=== PATIENT | male | born 1955 | race Caucasian/White ===

== ENCOUNTER → 2022-02-05 13:03 | Outpatient (BNVA) | payer MEDICARE, OTHER, SELFPAY | PROVIDERS: PCP Family Medicine; Referring Provider Dermatology; Visit Provider Podiatrist Foot & Ankle Surgery | DX: L60.3 Nail dystrophy (principal) | CPT/HCPCS: 99203 ==

== ENCOUNTER → 2022-02-10 07:34 | Outpatient (BNVA) | payer MEDICARE, OTHER, SELFPAY | PROVIDERS: PCP Family Medicine; Visit Provider Student in an Organized Health Care Education/Training Program | DX: M67.442 Ganglion, left hand (principal) | CPT/HCPCS: 73130; 99204 ==

== ENCOUNTER → 2022-02-24 10:28 | Outpatient (BNVA) | payer MEDICARE, OTHER, SELFPAY | PROVIDERS: PCP Family Medicine; Visit Provider Podiatrist Foot & Ankle Surgery | DX: L60.8 Other nail disorders (principal); B35.1 Tinea unguium | CPT/HCPCS: 99213 ==

== ENCOUNTER 2022-03-12 07:23 | Day surgery (SDC) | payer MEDICARE, OTHER, SELFPAY ==
[2022-03-11 12:17] VITALS: BMI 26.3
[2022-03-12 07:44] VITALS: BP 118/87; PULSE 79; RESP 18; TEMP 36.5; O2SAT 95
[2022-03-12] MEDS: sodium chloride 0.9% 1,000 ML 30 ML IV (07:50)
[2022-03-12] MEDS: ketorolac 30 mg/mL INJ IVP (07:50)
[2022-03-12] MEDS: acetaminophen 1,000 MG/100 ML PIGGYBACK 400 MG IV (07:50)
--- NOTE | 2022-03-12 08:23 | W.PM.OPSUD ---
Surgery/Procedure H&P Update DATE OF PROCEDURE: March 12, 2022 DATE H&P PERFORMED: 02/10/22 CHANGES TO PREVIOUS DOCUMENTATION: None PREOP DIAGNOSIS: Left small finger mucous cyst PRIMARY INDICATION FOR PROCEDURE: Left small finger mucous cyst, painful failed conservative treatment PLANNED PROCEDURE: Operation Date: 03/12/22 09:05 Proposed Procedures p Left Small finger mucous cyst excision [id number](Left) - Jonathan Richard DO
--- NOTE | 2022-03-12 09:47 | ANES.PREANE2 ---
Pre-Anesthetic Assessment Height/Weight: Height 1.88 m Weight 92.986 kg Temp Pulse Resp BP Pulse Ox O2 Del Method 97.7 F 79 18 118/87 95 03/12/22 07:44 03/12/22 07:44 03/12/22 07:44 03/12/22 07:44 03/12/22 07:44 03/12/22 07:44 Preop Diagnosis: Left small finger mucous cyst Operation Date: 03/12/22 09:05 Proposed Procedures p Left Small finger mucous cyst excision [id number](Left) - Jonathan Richard, Familial anesthetic complications: none Was Beta Arslan taken within 24 hours: Yes Was Clonidine taken within 24 hours: N/A Last intake: Intake Last Liquid Date 03/11/22 Last Liquid Time 18:30 Last Solid Date 03/11/22 Last Solid Time 18:00 Social No alcohol and No tobacco Exam alert, oriented x 3, clear to auscultation bilaterally and regular rate & rhythm Airway Submandibular: within normal limits Cervical ROM: within normal limits Mallampati: Class II Dentition: full CV/HEM Hypertension Anesthetic Plan ASA status: 2 Anesthesia: MAC Medications/Allergies Home Medications Medication Instructions Recorded Confirmed Last Taken Type aspirin 325 mg tablet 325 mg PO DAILY #90 tabs 11/12/21 03/11/22 03/08/22 Rx metoprolol tartrate 25 mg tablet 12.5 mg PO BID #90 tabs 11/12/21 03/11/22 03/11/22 Rx Allergies Allergy/AdvReac Type Severity Reaction Status Date / Time No Known Allergies Allergy Verified 03/12/22 07:34 Current Medications Generic Name Dose Route Start Last Admin Trade Name Renéq PRN Reason Stop Dose Admin Sodium Chloride 1,000 mls @ 30 mls/hr 03/12/22 07:30 03/12/22 07:50 Sodium Chloride 0.9% IV 03/13/22 07:29 30 mls/hr .Q24H NELDA Administration PFSH Anesthesia Medical History Atrial fibrillation Digital mucous cyst of finger of left hand Family History Grandfather Heart attack Social History Smoking and tobacco status: former smoker (smokeless tobacco) Alcohol intake: current Alcohol intake frequency: few times a week Alcohol type: beer and wine Data Anesthesia Cardiac Studies: No Data to Display
[2022-03-12] MEDS: ceFAZolin 2,000 MG in sodium chloride 0.9% (plus) 50 ML 100 MG IV (09:48)
[2022-03-12 10:22] VITALS: BP 119/84; PULSE 79; RESP 14; TEMP 36.1; O2SAT 98
[2022-03-12 10:25] VITALS: BP 141/83; PULSE 68; RESP 21; O2SAT 96
[2022-03-12 10:30] VITALS: BP 109/75; PULSE 59; RESP 14; TEMP 36.4; O2SAT 97
--- NOTE | 2022-03-12 10:34 | PM.OP2 ---
Brief Operative Note Date of procedure: 03/12/22 Pre-op diagnosis: Left small finger mucous cyst Post-op diagnosis: same Procedure Done: Left small finger mucous cyst excision Surgeon: Jonathan Richard Estimated blood loss (mL): 1 Complications: None Post-op Plan: Patient taken to PACU in stable condition. Patient recovering well. Patient given appropriate discharge instruction as well as pain medication postoperatively. To follow-up with me in the office in 2 weeks. Range of motion as tolerated the finger. 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
[2022-03-12 10:35] VITALS: BP 137/75; PULSE 68; RESP 16; TEMP 36.4; O2SAT 97
--- NOTE | 2022-03-12 10:37 | PM.PACU ---
PACU note Narrative: Patient seen evaluated in PACU. Patient recovering well. Dressing on in place clean dry and intact. Examination limited secondary to dressing. Brisk capillary refill less than 2 seconds. Patient received local anesthesia sensation decreased to the left small finger. Exam: awake Disposition: discharged
--- NOTE | 2022-03-12 10:37 | PM.OP ---
Operative Report Date of procedure: March 12, 2022 Pre-op diagnosis: Preop Diagnosis Left small finger mucous cyst Post-op diagnosis: Same Procedure done: Left small finger mucous cyst excision Surgeon: Jonathan Richard DO Estimated blood loss: 1 cc 16 minutes IV fluids: See anesthesia record Complications: None Findings: See operative report narrative Condition: stable Disposition: same day Brief History: Patient was seen and worked up in the outpatient setting and findings consistent with a left small finger mucous cyst. Patient's had this over a year and has significant tenderness to palpation when he bumps this. Its enabled some of his activities of daily living. He is poked this and drained the cyst multiple times over the past year. Continue to return and recur. We talked about treatment options. On x-ray he does not have a significant dorsal osteophyte or any significant arthritic changes. We talked about continued conservative treatment versus surgery with left small finger mucous cyst excision. Through shared decision making elected to proceed with surgery. We talked about risk benefits complication alternatives to surgical treatment options. He understands risks and agrees to proceed with surgical intervention. All questions answered. Consent was reviewed and signed with patient. Procedure: Patient was seen and evaluated in the preoperative holding area. Consent was reviewed with patient and signed. The correct extremity was subsequently marked. Seen evaluated by anesthesia department. Once cleared for surgery taken back to the operative suite. Patient was then subsequently placed in the operative table with armboard to the left upper extremity. Patient was appropriately secured to the bed and all bony prominences well-padded. Nonsterile tourniquet applied to the left upper arm. Patient's left upper extremity was then prepped and draped in standard orthopedic fashion. Final timeout performed. Patient received appropriate preoperative antibiotics. Patient underwent local anesthesia for digital block of the left small finger. Next the finger turnicot was then placed to the left small finger for hemostasis. I then identified the residual left small finger mucous cyst over the DIP joint. This was more on the ulnar aspect of the digit. As result I extended an incision extending from the eponychial crease on the ulnar side of the digit to the DIP joint and then made a transverse incision in line with the DIP extensor crease to create a flap to mobilize and excised the entirety of the mucous cyst capsule. Dissection was made carefully through skin and subcutaneous tissue with meticulous soft tissue handling and mobilized the skin flap and elevated right on top of the extensor tendon extensor tendon was protected throughout this case. Mobilizing the flap I then encountered the cyst in cystlike fluid was then excised. Because the patient had previously decompressed this there was not much fluid and the capsule was identified which was very superficial in nature. The cyst was right over top the germinal matrix. I then utilized the scalpel to ellipse out the entirety of the mucous cyst capsule. I bent the DIP joint to identify where the cyst stalk was coming from. There was a small rent at the terminal extensor tendon insertion at the central portion. 1 synovial fluid would come out of this area. At this point time I used bipolar electrocautery to coagulate this area which was near the germinal matrix. Care was made to focalized right over this area and not damage the germinal matrix. This point time I had complete excision of the cyst as well as coagulation of the stalk. No significant dorsal osteophytes were identified and no need for further dissection into the DIP joint. This point time I then thoroughly irrigated the wound bed turnicot was removed. Hemostasis satisfactory with bipolar electrocautery. I then subsequently closed the incision with interrupted nylon suture. Finger was then dressed with Xeroform 4 x 4's Curlex and an Chandan wrap. Patient tolerated procedure without complication he was awakened from anesthesia and taken to PACU in stable condition.: Disposition: Patient tolerated procedure without complications. Dressing clean dry and intact. Receive appropriate discharge structure as well as pain medication postoperatively. Patient will follow-up with me in the office in 2 weeks. Patient understands agrees with current plan. All questions answered.
[2022-03-12 10:50] VITALS: BP 129/81; PULSE 61; RESP 16; O2SAT 98
--- NOTE | 2022-03-12 12:02 | ANE.PACU2 ---
Inpatient post-anesthesia follow up: Airway intact: Yes Vital signs: Temperature 97.6 F Pulse Rate 61 Respiratory Rate 16 Blood Pressure 129/81 Pulse Oximetry 98 Oxygen Delivery Me thod Room Air Oxygen Flow Rate 6 Fraction of Inspir ed Oxygen Hydration adequate: Yes Nausea and vomiting: No Pain level: 1 Mental status: Baseline
== END 2022-03-12 11:10 | disposition home or self-care (01) ==
PROVIDERS: PCP Family Medicine; Visit Provider Student in an Organized Health Care Education/Training Program
PROC: (CPT 26160; principal; 2022-03-12 09:05)
DX: L72.9 Follicular cyst of the skin and subcutaneous tissue, unspecified (principal); I10 Essential (primary) hypertension; I48.91 Unspecified atrial fibrillation; Z87.891 Personal history of nicotine dependence
CPT/HCPCS: 26160; J0131; J0690; J1885; J2250; J2704; J2795; J3010; J3490; J7030

== ENCOUNTER → 2022-03-24 09:41 | Outpatient (BNVA) | payer MEDICARE, OTHER, SELFPAY | PROVIDERS: PCP Family Medicine; Visit Provider Student in an Organized Health Care Education/Training Program | DX: M67.442 Ganglion, left hand (principal) | CPT/HCPCS: 99024 ==

== ENCOUNTER → 2022-04-23 12:47 | Outpatient (BNVA) | payer MEDICARE, OTHER, SELFPAY | PROVIDERS: PCP Family Medicine; Visit Provider Internal Medicine | DX: I48.91 Unspecified atrial fibrillation (principal); Z87.891 Personal history of nicotine dependence | CPT/HCPCS: 99213 ==

== ENCOUNTER → 2023-04-22 12:44 | Outpatient (BNVA) | payer MEDICARE, OTHER, SELFPAY | PROVIDERS: PCP Family Medicine; Visit Provider Internal Medicine | DX: I48.91 Unspecified atrial fibrillation (principal); Z79.82 Long term (current) use of aspirin | CPT/HCPCS: 99214 ==

== ENCOUNTER 2023-06-24 08:42 | Outpatient (CLI) | payer MEDICARE, OTHER, SELFPAY ==
--- NOTE | 2023-06-24 09:16 | ECG_ITS ---
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 Interpretive Statements NAME OF STUDY: LEXISCAN SESTAMIBI STRESS TEST INDICATION: [Chest Pain, ] Procedure: At the baseline, the blood pressure was 115/93 mmHg with a heart rate of 66 bpm. The electrocardiogram showed atrial fibrillation, normal axis with normal ST and T's. The Lexiscan was infused over a period of 20 seconds. A total of 0.4 mg of Lexiscan was infused. The stress phase was continued for a total of 5 minutes. Heart rate was at the end of stress phase was 71 bpm and a blood pressure of 122/94 mmHg. The EKG at the peak infusion revealed atrial fibrillation with no significant ST-T wave changes. Sestamibi was injected 20 seconds after the Lexiscan infusion. Blood pressure at the end of recovery phase was 123/79 mmHg with a heart rate of 71 bpm. Conclusion: 1. Normal EKG response to Lexiscan infusion 2. No Lexiscan induced chest pain or cardiac arrhythmia. 3. Normal blood pressure and heart rate response. 4. Sestamibi/sestamibi perfusion scan pending; see separate report. Electronically Signed On 07-06-2023 11:52:14 CDT by Jomar Prasad M.D. [id number]
--- NOTE | 2023-06-24 09:16 | NMCV_ITS ---
NM ananth perf SPECT r/s* [id number] Maurice Godwin Age: 68 Gender: M : 1955 Exam Date: 06/24/2023 09:16 Ordering Phys: Jomar Prasad M.D ([email or web address]) Technologist: MICHELLE Rolle Exam Location: [facility] Indications: CHEST PAIN STRESS TEST [facility] IMAGE PROTOCOL Rest/Stress 1 Lexiscan Day Radiopharmaceutical Dose (mCi) Administration Site Administered by Rest: Tc-99m 10.8 IV MICHELLE Dick Sestamibi Stress:Tc-99m 32.6 IV MICHELLE Dick Sestamibi Rest: 24-Jun-2023 60 Discovery 630 Stress: 24-Jun-2023 30 Discovery 630 0.4mg Lexiscan. Images obtained in supine and prone position. SPECT RESULTS Technical Quality: Excellent Raw Data Analysis: Normal Image Corrections: No attenuation or motion correction applied Summed Stress Score: 0 Summed Rest Score: 1 Summed Difference Score: 0 PERFUSION FINDINGS SPECT images demonstrate homogeneous tracer distribution throughout the myocardium. FUNCTIONAL RESULTS (calculated via Gated SPECT) Stress Image LV EF (%): 60 Stress EDV (mL):117 TID: 1.2 Stress ESV (mL):47 FUNCTIONAL FINDINGS: There is normal left ventricular systolic function. IMPRESSIONS 1. Normal myocardial perfusion imaging with no evidence of ischemia 2. LV systolic function is normal Jomar Prasad MD (Electronically Signed) Final Date: 28 June 2023 12:06 S
[2023-06-24 09:19] VITALS: BMI 26.2
[2023-06-24] MEDS: regadenoson 0.4 Mg/5 ml Syringe 0.400000000000000022 MG IVP (10:32)
[2023-06-24 10:53] VITALS: BP 122/94; PULSE 75
== END 2023-06-24 08:43 | disposition home or self-care (01) ==
PROVIDERS: PCP Family Medicine; Visit Provider Internal Medicine
DX: R07.9 Chest pain, unspecified (principal)
CPT/HCPCS: 36415; 78452; 93017; 96374; A9500; J2785

== ENCOUNTER → 2023-07-24 09:14 | Outpatient (BNVA) | payer MEDICARE, OTHER, SELFPAY | PROVIDERS: PCP Family Medicine; Visit Provider Nurse Practitioner Family | DX: L72.0 Epidermal cyst (principal); S80.922A Unspecified superficial injury of left lower leg, initial encounter; S50.911A Unspecified superficial injury of right forearm, initial encounter; S50.912A Unspecified superficial injury of left forearm, initial encounter; X58.XXXA Exposure to other specified factors, initial encounter; L81.4 Other melanin hyperpigmentation; L82.1 Other seborrheic keratosis | CPT/HCPCS: 17000; 99204 ==

== ENCOUNTER → 2024-07-22 10:58 | Outpatient (BNVA) | payer MEDICARE, OTHER, SELFPAY | PROVIDERS: PCP Family Medicine; Visit Provider Nurse Practitioner Family | DX: L57.8 Other skin changes due to chronic exposure to nonionizing radiation (principal); L81.4 Other melanin hyperpigmentation; D22.5 Melanocytic nevi of trunk; L72.0 Epidermal cyst; L57.0 Actinic keratosis | CPT/HCPCS: 10060; 17000; 99213 ==